=== PATIENT | male | born 2000 | race Caucasian/White ===

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

== ENCOUNTER 2020-01-11 14:44 | Emergency (ER) | payer SELFPAY ==
[2020-01-11] MEDS ORDERED: HYDROCODONE/APAP 10/325 TAB ONE (15:19)
[2020-01-11] MEDS ORDERED: IBUPROFEN 200 MG TAB PO ONE (15:19)
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
[2020-01-11] MEDS ORDERED: TETANUS & DIPHTHERIA TOX,ADULT 0.5 ML VIAL ONE (16:14)
[2020-01-11 21:50] VITALS: TEMP 99.5; O2SAT 100
[2020-01-11 21:53] VITALS: BP 127/86
== END 2020-01-11 16:57 | disposition home or self-care (01) ==
LOC: ER 14:44
PROC: 2W3QX1Z Immobilization of Right Lower Leg using Splint (ICD-10-PCS; principal; 2020-01-11)
DX: S92.124A Nondisplaced fracture of body of right talus, initial encounter for closed fracture (principal); S92.341A Displaced fracture of fourth metatarsal bone, right foot, initial encounter for closed fracture; S92.351A Displaced fracture of fifth metatarsal bone, right foot, initial encounter for closed fracture; F17.290 Nicotine dependence, other tobacco product, uncomplicated; V48.5XXA Car driver injured in noncollision transport accident in traffic accident, initial encounter
CPT/HCPCS: 90471; 90714; 99283

== ENCOUNTER 2020-11-17 11:03 | Emergency (ER) | payer SELFPAY ==
[2020-11-17] MEDS ORDERED: TETANUS & DIPHTHERIA TOX,ADULT 0.5 ML VIAL ONE (12:02)
[2020-11-17] MEDS ORDERED: LIDOCAINE 1% MPF 30 ML VIAL ONE (12:02)
--- NOTE | 2020-11-17 12:16 | ER ---
Nurse's Notes [facility] Name: Joseph Nickerson Age: 20 yrs Sex: Male : 2000 Arrival Date: 11/17/2020 Time: 11:04 Bed 11 Private MD: Diagnosis: Laceration of the Left Hand Presentation: 11/17 11:19 Chief complaint: Patient states: using a box brander and slipped, laceration to jl7 posterior side of left hand. Coronavirus screen: At this time, the client does not indicate any symptoms associated with coronavirus-19. Ebola Screen: No symptoms or risks identified at this time. Complicating Factors: There are no complicating factors for this patient. Initial Sepsis Screen: Does the patient meet any 2 criteria? No. Patient's initial sepsis screen is negative. Does the patient have a suspected source of infection? No. Patient's initial sepsis screen is negative. Risk Assessment: Do you want to hurt yourself or someone else? Patient reports no desire to harm self or others. Onset of symptoms was November 17, 2020. Care prior to arrival: None. 11:19 Method Of Arrival: Ambulatory [facility] 11:19 Acuity: LETTY 4 jl7 Triage Assessment: 11:20 General: Appears in no apparent distress. uncomfortable, Behavior is calm, cooperative, jl7 appropriate for age. Pain: Complains of pain in dorsum of left hand Pain currently is 8 out of 10 on a pain scale. Injury Description: Laceration sustained to dorsum of left hand. Historical: - Allergies: 11:20 No Known Allergies; jl7 - Home Meds: 11:20 None [Active]; jl7 - PMHx: 11:20 Kidney stones; suicide attempt by overdsoe; jl7 - PSHx: 11:20 None; jl7 - Immunization history:: Adult Immunizations not up to date, Client reports having NOT received the Covid vaccine. Last tetanus immunization: > 10 years ago. - Social history:: Smoking status: Reported history of juuling and/or vaping. Screenin:33 Abuse screen: Denies threats or abuse. Denies injuries from another. Nutritional tc5 screening: No deficits noted. Tuberculosis screening: No symptoms or risk factors identified. Fall Risk None identified. Assessment: 11:32 General: Appears in no apparent distress. Behavior is calm, cooperative, appropriate tc5 for age. Pain: Complains of pain in heel of left hand, palm of left hand and Left first web space. Neuro: No deficits noted. Cardiovascular: No deficits noted. Respiratory: No deficits noted. GI: No deficits noted. : No deficits noted. 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 Vital Signs: 11:19 BP 140 / 86; Pulse 70; Resp 17; Temp 98.6; Pulse Ox 98% ; Weight 86.18 kg; Height 6 ft. jl7 1 in. (185.42 cm); Pain 8/10; 11:19 Body Mass Index 25.07 (86.18 kg, 185.42 cm) 7 ED Course: 11:04 Patient arrived in ED. as 11:20 Triage completed. 7 11:20 Arm band placed on right wrist. [facility] 11:21 Tylor Amaya PA is PHCP. [facility] 11:21 Eyal Meade MD is Attending Physician. [facility] 11:24 Stephanie Jack, RN is Primary Nurse. 5 12:13 Jorje Mckinley MD is Referral Physician. [facility] Administered Medications: 11:38 Drug: Tetanus-Diphtheria Toxoid Adult 0.5 ml {Merchandise Planning Manager: [email or web address]. Exp: tc5 06/25/2022. Lot #: [id number]. } Route: IM; Site: right deltoid; 11:39 Drug: Lidocaine (1 %) 20 ml {Note: given to provider for proceedure..} Volume: 20 ml; tc5 Route: Infiltration; Outcome: 12:15 Discharge ordered by . [facility] 12:40 Patient left the ED. 5 Signatures: Tylor Amaya PA PA jmm Martinez, Amelia as Leal, Jahala RN SAUL [facility] Stephanie Jack, SAUL HUGHES 5
--- NOTE | 2020-11-17 12:16 | EDPHYS ---
Physician Documentation [facility] Name: Joseph Nickerson Age: 20 yrs Sex: Male : 2000 Arrival Date: 11/17/2020 Time: 11:04 Bed 11 Private MD: ED Physician Eyal Meade HPI: 11/17 12:09 This 20 yrs old Male presents to ER via Ambulatory with complaints of jmm Laceration To Hand. 12:09 The laceration(s) is(are) located on the left hand. Onset: The symptoms/episode jmm began/occurred acutely. This is a 20-year-old male that presents emerged department after excellently cutting himself with a razor blade while at work. Patient is unsure of his tetanus immunization status. Patient concerned due to the heavy amount of bleeding. Denies weakness or near syncope. Historical: - Allergies: 11:20 No Known Allergies; jl7 - Home Meds: 11:20 None [Active]; jl7 - PMHx: 11:20 Kidney stones; suicide attempt by overdsoe; jl7 - PSHx: 11:20 None; jl7 - Immunization history:: Adult Immunizations not up to date, Client reports having NOT received the Covid vaccine. Last tetanus immunization: > 10 years ago. - Social history:: Smoking status: Reported history of juuling and/or vaping. ROS: 12:09 Constitutional: Negative for fever, chills, and weight loss, Cardiovascular: Negative jmm for chest pain, palpitations, and edema, Respiratory: Negative for shortness of breath, cough, wheezing, and pleuritic chest pain. 12:09 Skin: Positive for laceration(s). 12:09 All other systems are negative. Exam: 12:09 Constitutional: This is a well developed, well nourished patient who is awake, alert, jmm and in no acute distress. Head/Face: atraumatic. Eyes: EOMI, no conjunctival erythema appreciated ENT: Moist Mucus Membranes Neck: Trachea midline, Supple Chest/axilla: Normal chest wall appearance and motion. Cardiovascular: Regular rate and rhythm. No edema appreciated Respiratory: Normal respirations, no respiratory distress appreciated Abdomen/GI: Non distended, soft Back: Normal ROM 12:09 Skin: 2 cm laceration noted to the dorsum of the left MTP region. 12:09 Neuro: Orientation: is normal, Mentation: is normal, Memory: is normal. 12:09 Psych: Behavior/mood is pleasant, cooperative. Vital Signs: 11:19 BP 140 / 86; Pulse 70; Resp 17; Temp 98.6; Pulse Ox 98% ; Weight 86.18 kg; Height 6 ft. jl7 1 in. (185.42 cm); Pain 8/10; 11:19 Body Mass Index 25.07 (86.18 kg, 185.42 cm) jl7 Laceration: 12:11 Wound Repair of 2cm ( 0.8in ) subcutaneous laceration to left hand. Distal jmm neuro/vascular/tendon intact. Anesthesia: Local anesthetic administered with 3 mls of 1% lidocaine. Wound prep: Simple cleansing with betadine by me. Skin closed with 5 5-0 Prolene using simple sutures and sterile technique. Patient tolerated well. MDM: 11:23 Patient medically screened. [facility] 12:11 Data reviewed: vital signs, nurses notes. [facility] 12:11 ED course: Patient patient was able to exhibit full range of motion physical exam of jmm the left thumb. Patient advised to follow-up with hand for reevaluation and otherwise given wound infection return precautions. Patient understood and agrees plan of care.. Administered Medications: 11:38 Drug: Tetanus-Diphtheria Toxoid Adult 0.5 ml {Production Planner Scheduler: [employer]. Exp: tc5 06/25/2022. Lot #: [id number]. } Route: IM; Site: right deltoid; 11:39 Drug: Lidocaine (1 %) 20 ml {Note: given to provider for proceedure..} Volume: 20 ml; tc5 Route: Infiltration; Disposition: 11/18 07:52 Co-signature as Attending Physician, Eyal Meade MD I agree with the assessment and [facility] plan of care. Disposition Summary: 11/17/20 12:15 Discharge Ordered Location: Home [facility] Condition: Stable [facility] Diagnosis - Laceration of the Left Hand [facility] Followup: [facility] - With: Jorje Mckinley MD - When: 7 - 10 days - Reason: Recheck today's complaints, Continuance of care, Staple/Suture removal, Re-evaluation by your physician Discharge Instructions: - Discharge Summary Sheet [facility] - Laceration Care, Adult [facility] Forms: - Medication Reconciliation Form jmm - Thank You Letter jmm - Antibiotic Education jmm - Prescription Opioid Use [facility] Signatures: Eyal Meade MD MD cha Mickail, Joel, PA PA jmm Leal, Jahala, RN RN jl7 Stephanie Jack RN RN tc5
[2020-11-17 12:45] VITALS: BP 140/86; TEMP 98.6; O2SAT 98
== END 2020-11-17 12:40 | disposition home or self-care (01) ==
LOC: ER 11:03
PROC: 0JQK0ZZ Repair Left Hand Subcutaneous Tissue and Fascia, Open Approach (ICD-10-PCS; principal; 2020-11-17)
DX: S61.412A Laceration without foreign body of left hand, initial encounter (principal); W26.8XXA Contact with other sharp object(s), not elsewhere classified, initial encounter; Y92.89 Other specified places as the place of occurrence of the external cause; Y99.8 Other external cause status; Z23 Encounter for immunization
CPT/HCPCS: 90471; 90714; 99282

== ENCOUNTER 2020-11-23 21:27 | Emergency (ER) | payer SELFPAY ==
[2020-11-23] MEDS ORDERED: LIDOCAINE 1% MPF 5 ML VIAL ONE (22:29)
--- NOTE | 2020-11-23 23:09 | ER ---
Nurse's Notes [facility] Name: Joseph Nickerson Age: 20 yrs Sex: Male : 2000 Arrival Date: 11/23/2020 Time: 21:30 Bed 16 Private MD: Diagnosis: Local infection of the skin and subcutaneous tissue, unspecified Presentation: 11/23 22:27 Chief complaint: Patient states: pt was here and received stitches last Sunday 6 bs2 days ago, pt states he was told he could remove them in 3 or 4 days and pt removed his own stitches before laceration had healed. . pt now has pain, redness and possible start to abscess at site. Coronavirus screen: Vaccine status: Patient reports being unvaccinated. Coronavirus screen: At this time, the client does not indicate any symptoms associated with coronavirus-19. Ebola Screen: No symptoms or risks identified at this time. Initial Sepsis Screen: Does the patient meet any 2 criteria? No. Patient's initial sepsis screen is negative. Does the patient have a suspected source of infection? No. Patient's initial sepsis screen is negative. Risk Assessment: Do you want to hurt yourself or someone else? Patient reports no desire to harm self or others. Onset of symptoms was November 23, 2020. 22:27 Method Of Arrival: Ambulatory bs2 22:27 Acuity: LETTY 4 bs2 Triage Assessment: 22:30 General: Appears in no apparent distress. comfortable, well groomed, well developed, bs2 well nourished, Behavior is calm, cooperative, appropriate for age. Pain: Complains of pain in lateral aspect of left hand Pain currently is 5 out of 10 on a pain scale. EENT: No deficits noted. No signs and/or symptoms were reported regarding the EENT system. Neuro: No deficits noted. Cardiovascular: No deficits noted. Respiratory: No deficits noted. GI: No deficits noted. No signs and/or symptoms were reported involving the gastrointestinal system. : No deficits noted. No signs and/or symptoms were reported regarding the genitourinary system. Derm: No deficits noted. No signs and/or symptoms reported regarding the dermatologic system. Musculoskeletal: No deficits noted. No signs and/or symptoms reported regarding the musculoskeletal system. Injury Description: Laceration sustained to lateral aspect of left hand no active bleeding noted at this time. Historical: - Allergies: 22:30 No Known Allergies; bs2 - Home Meds: 22:30 None [Active]; bs2 - PMHx: 22:30 Kidney stones; suicide attempt by overdsoe; bs2 - PSHx: 22:30 None; bs2 - Immunization history:: Adult Immunizations not up to date, Client reports having NOT received the Covid vaccine. - Social history:: Smoking status: Patient denies any tobacco usage or history of. Screenin:31 Abuse screen: Denies threats or abuse. Denies injuries from another. Nutritional bs2 screening: No deficits noted. Tuberculosis screening: No symptoms or risk factors identified. Fall Risk None identified. Assessment: 22:31 Reassessment: Patient appears in no apparent distress at this time. No changes from bs2 previously documented assessment. Patient is alert, oriented x 3, equal unlabored respirations, skin warm/dry/pink. General:. Injury Description: pt removed stitches 4 days after placement stating he was told he could. pt now has a red raised soft spot and possible abscess on side of laceration site. Vital Signs: 22:27 BP 122 / 69 RA Sitting (auto/reg); Pulse 79 MON; Resp 15 S; Temp 98.2(O); Pulse Ox 97% bs2 on R/A; Weight 86.18 kg (R); Height 6 ft. 1 in. (185.42 cm) (R); Pain 5/10; 23:00 BP 120 / 68; Pulse 70; Resp 15; Temp 98.6; Pulse Ox 100% ; Pain 2/10; bs2 22:27 Body Mass Index 25.07 (86.18 kg, 185.42 cm) bs2 ED Course: 21:30 Patient arrived in ED. ja2 21:31 Manasa Staley FNP-C is [facility]. kb 21:31 Eyal Meade MD is Attending Physician. kb 22:21 Jodi Munoz, SAUL is Primary Nurse. bs2 22:30 Triage completed. bs2 22:30 Arm band placed on right wrist. bs2 22:31 Patient has correct armband on for positive identification. Bed in low position. Call bs2 light in reach. Side rails up X 1. Pulse ox on. NIBP on. Door closed. Warm blanket given. 23:32 bandage over open wound on hand and given strict cleaning instructions and instructions bs2 on signs and symptoms of infection. Patient did not have IV access during this emergency room visit. Administered Medications: 23:05 Drug: Lidocaine (1 %) 1 vials Volume: 5 ml; Route: Infiltration; bs2 23:32 Follow up: Response: No adverse reaction bs2 23:25 Drug: Bactrim (trimethoprim-sulfamethoxazole) (160 mg-800 mg (DS) 1 tablet Route: PO; bs2 23:32 Follow up: Response: No adverse reaction bs2 Outcome: 23:08 Discharge ordered by MD. crouch 23:33 Discharged to home ambulatory, with family. bs2 23:33 Condition: improved 23:33 Discharge instructions given to patient, significant other, Instructed on discharge instructions, follow up and referral plans. medication usage, wound care, Demonstrated understanding of instructions, follow-up care, medications, wound care, Prescriptions given X 1. 23:34 Patient left the ED. bs2 Signatures: Manasa Staley, STELLA-C STELLA-Jodi Cosme, RN RN bs2 Molly Sood
--- NOTE | 2020-11-23 23:09 | EDPHYS ---
Physician Documentation [facility] Name: Joseph Nickerson Age: 20 yrs Sex: Male : 2000 Arrival Date: 11/23/2020 Time: 21:30 Bed 16 Private MD: ED Physician Eyal Meade HPI: 11/23 23:05 This 20 yrs old Male presents to ER via Ambulatory with complaints of Hand kb Swelling. 23:05 The patient or guardian reports pain, swelling, tenderness. The complaints affect the kb lateral aspect of left hand. Context: The problem was sustained at work, resulted from accidentally cut hand with razorblade. Onset: The symptoms/episode began/occurred yesterday. Modifying factors: The symptoms are alleviated by nothing, the symptoms are aggravated by nothing. Associated signs and symptoms: The patient has no apparent associated signs or symptoms. Severity of symptoms: At their worst the symptoms were mild, in the emergency department the symptoms are unchanged. The patient has not experienced similar symptoms in the past. The patient has been recently seen at the [facility] Emergency Department. Pt states he cut his hand on a razor blade last week. States he came here and had sutures placed. Reports he was told he could remove the sutures after 3-4 days so they did. Came in today for redness and swelling around site. . Historical: - Allergies: 22:30 No Known Allergies; bs2 - Home Meds: 22:30 None [Active]; bs2 - PMHx: 22:30 Kidney stones; suicide attempt by overdsoe; bs2 - PSHx: 22:30 None; bs2 - Immunization history:: Adult Immunizations not up to date, Client reports having NOT received the Covid vaccine. - Social history:: Smoking status: Patient denies any tobacco usage or history of. ROS: 23:03 Constitutional: Negative for fever, chills, and weight loss. kb 23:03 Skin: Positive for abscess, erythema, swelling, of the lateral aspect of left hand. 23:03 All other systems are negative. Exam: 23:03 Constitutional: This is a well developed, well nourished patient who is awake, alert, kb and in no acute distress. Head/Face: Normocephalic, atraumatic. ENT: Moist Mucous membranes Respiratory: Respirations even and unlabored. No increased work of breathing, no retractions or nasal flaring. MS/ Extremity: Pulses equal, no cyanosis. Neurovascular intact. Full, normal range of motion. Neuro: Awake and alert, GCS 15, oriented to person, place, time, and situation. Moves all extremities. Normal gait. Psych: Awake, alert, with orientation to person, place and time. Behavior, mood, and affect are within normal limits. 23:03 Skin: abscess, that is small, of the lateral aspect of left hand, with fluctuance, that is mild. Vital Signs: 22:27 BP 122 / 69 RA Sitting (auto/reg); Pulse 79 MON; Resp 15 S; Temp 98.2(O); Pulse Ox 97% bs2 on R/A; Weight 86.18 kg (R); Height 6 ft. 1 in. (185.42 cm) (R); Pain 5/10; 23:00 BP 120 / 68; Pulse 70; Resp 15; Temp 98.6; Pulse Ox 100% ; Pain 2/10; bs2 22:27 Body Mass Index 25.07 (86.18 kg, 185.42 cm) bs2 Procedures: 23:07 I \T\ D: Incision and drainage was performed for an abscess of the left lateral aspect of kb left hand Prepped with hibiclense. Anesthetized with 1 ml's 1% Lidocaine. Incised with #11 blade. Dressing: sterile 4x4 gauze, the patient tolerated the procedure well, clot removed from area of fluctuance.. MDM: 22:01 Patient medically screened. kb 23:02 Data reviewed: vital signs, nurses notes. Data interpreted: Pulse oximetry: on room air kb is 97 %. Interpretation: normal. Counseling: I had a detailed discussion with the patient and/or guardian regarding: the historical points, exam findings, and any diagnostic results supporting the discharge/admit diagnosis, the need for outpatient follow up, a family practitioner, to return to the emergency department if symptoms worsen or persist or if there are any questions or concerns that arise at home. 11/23 22:54 Order name: I\T\D Setup; Complete Time: 23:05 kb Administered Medications: 23:05 Drug: Lidocaine (1 %) 1 vials Volume: 5 ml; Route: Infiltration; bs2 23:32 Follow up: Response: No adverse reaction bs2 23:25 Drug: Bactrim (trimethoprim-sulfamethoxazole) (160 mg-800 mg (DS) 1 tablet Route: PO; bs2 23:32 Follow up: Response: No adverse reaction bs2 Disposition: 11/24 07:44 Co-signature as Attending Physician, Eyal Meade MD I agree with the assessment and oliva plan of care. Disposition Summary: 11/23/20 23:08 Discharge Ordered Location: Home kb Condition: Stable kb Diagnosis - Local infection of the skin and subcutaneous tissue, unspecified kb Followup: kb - With: Emergency Department - When: As needed - Reason: Worsening of condition Followup: kb - With: Private Physician - When: 2 - 3 days - Reason: Recheck today's complaints, Continuance of care, Re-evaluation by your physician Discharge Instructions: - Discharge Summary Sheet kb - Wound Infection, [id number] kb Forms: - Medication Reconciliation Form kb - Thank You Letter kb - Antibiotic Education kb - Prescription Opioid Use kb Prescriptions: - Bactrim DS 800-160 mg Oral Tablet - take 1 tablet by ORAL route every 12 hours for 7 days; 14 tablet; Refills: 0, kb Product Selection Permitted Signatures: Manasa Staley, PEDICAB DRIVER-C PEDICAB DRIVER-Eyal Parker MD MD cha Smith, Bridget, RN RN bs2 Corrections: (The following items were deleted from the chart) 11/23 23:05 23:03 Skin: Positive for abscess, erythema, swelling, of the lateral aspect of right kb hand, kb 23:05 23:03 Skin: abscess, that is small, kb kb
[2020-11-23] MEDS ORDERED: SMZ./TMP. 800/160 MG TABLET ONE (23:34)
[2020-11-23 23:39] VITALS: BP 120/68; TEMP 98.6; O2SAT 100
== END 2020-11-23 23:34 | disposition home or self-care (01) ==
LOC: ER 21:27
PROC: 0J9K0ZZ Drainage of Left Hand Subcutaneous Tissue and Fascia, Open Approach (ICD-10-PCS; principal; 2020-11-23)
DX: L02.512 Cutaneous abscess of left hand (principal); L08.9 Local infection of the skin and subcutaneous tissue, unspecified
CPT/HCPCS: 99283